=== PATIENT | male | born 1945 | race Caucasian/White ===

== ENCOUNTER 2019-12-16 15:09 | Outpatient (CLI) | payer MEDICARE, BC, SELFPAY ==
--- NOTE | ~2019-12-16 | US_ITS ---
EXAMINATION: US renal BI EXAM DATE: 12/16/2019 16:05 INDICATION: Kidney cyst follow-up. TECHNIQUE: Multiple grayscale and Doppler images of the kidneys were obtained (by a technologist who performed the scan) and subsequently reviewed. There is no prior study for comparison. FINDINGS: Right kidney: There is normal contour and echogenicity. It measures 10.1 x 6.2 x 5.3 centimeters. T here are no focal renal lesions identified. There is no hydronephrosis. Left kidney: There is normal contour and echogenicity. It measures 9.9 x 4.9 x 6.0 centimeters. Exop hytic 5 mm cyst. There is no hydronephrosis. Bladder unremarkable. IMPRESSION: 1. Sonographically unremarkable kidneys. Reviewed, dictated and finalized at location A.
== END 2019-12-16 15:10 | disposition home or self-care (01) ==
LOC: ANHIMG 15:19
PROVIDERS: PCP Family Medicine; Visit Provider Nurse Practitioner Family
DX: N28.1 Cyst of kidney, acquired (principal)
CPT/HCPCS: 76775

== ENCOUNTER 2020-09-23 09:03 | Outpatient (CLI) | payer MEDICARE, BC, SELFPAY ==
[2020-09-23 09:19] LABS: Basophils Absolute Auto 0.1 K/mm3 (0.0-0.1); Basophils Percent Auto 0.7 % (0.2-1.2); Eosinophils Absolute Auto 0.1 K/mm3 (0-0.3); Eosinophils Percent Auto 1.4 % (0-4.4); Hematocrit 42.7 % (42.0-52.0); Hemoglobin 14.6 g/dL (14.0-18.0); Immature Granulocyte Absolute 0.02 K/mm3 (0.00-0.031); Immature Granulocyte Percent A 0.3 % (0-0.5); Lymphocytes Absolute Auto 1.96 K/mm3 (0.9-3.2); Lymphocytes Percent Auto 27.5 % (18.3-44.2); Mean Corpuscular HGB Conc 34.2 g/dl (32-36); Mean Corpuscular Hemoglobin 31.9 pg (26-34); Mean Corpuscular Volume 93.2 fl (80-100); Mean Platelet Volume 10.4 fl (7.4-10.4); Monocytes Absolute Auto 0.6 K/mm3 (0.1-0.6); Monocytes Percent Auto 8.3 % (2.6-8.5); Neutrophils Absolute Auto 4.4 K/mm3 (1.3-6.7); Neutrophils Percent Auto 61.8 % (45.5-73.1); Platelet Count Result 145 k/mm3 (150-375); Red Blood Count 4.58 M/mm3 (4.6-6.20); Red Cell Distribution Width 13.1 % (11.5-14.5); White Blood Count 7.1 K/mm3 (4.5-10.0)
[2020-09-23 09:29] LABS: Alanine Aminotransferase 28 U/L (4-50); Alkaline Phosphatase 108 U/L (38-126); Anion Gap 7 mmol/L (8-16); Aspartate Amino Transferase 27 U/L (17-59); Bilirubin,Total 0.9 mg/dL (0.2-1.3); Blood Urea Nitrogen 16 mg/dL (9-20); Calcium 9.5 mg/dL (8.4-10.2); Carbon Dioxide 32 mmol/L (22-30); Chloride 103 mmol/L (98-107); Cholesterol 149 mg/dL (0-200); Estimated Glomerular Filt Rate > 60; Glucose 131 mg/dL (75-110); HDL Direct 51 mg/dL; Potassium 4.2 mmol/L (3.4-5.0); Sodium 142 mmol/L (137-145); Triglycerides 87 mg/dL (<150)
[2020-09-23 09:40] LABS: LDL Cholesterol Direct 77 mg/dL
[2020-09-23 09:59] LABS: Prostate Specific Antigen 3.4 ng/mL (< OR = 4.0)
[2020-09-23 10:09] LABS: Iron 140 ug/dL (49-181)
[2020-09-23 10:18] LABS: Percent Iron Saturation 40 % (20-50)
[2020-09-26 10:27] LABS: Testosterone Total 262 ng/dL (250-1100)
== END 2020-09-23 09:04 | disposition home or self-care (01) ==
LOC: ANHLAB 09:05
PROVIDERS: PCP Family Medicine; Visit Provider Family Medicine
DX: Z12.5 Encounter for screening for malignant neoplasm of prostate (principal); D64.9 Anemia, unspecified; F32.5 Major depressive disorder, single episode, in full remission; I50.42 Chronic combined systolic (congestive) and diastolic (congestive) heart failure; N52.9 Male erectile dysfunction, unspecified
CPT/HCPCS: 36415; 80048; 80061; 80076; 83540; 83550; 84153; 84403; 84443; 85025; G0103

== ENCOUNTER 2021-02-23 09:35 | Outpatient (CLI) | payer MEDICARE, BC, SELFPAY ==
--- NOTE | ~2021-02-23 | XR_ITS ---
EXAMINATION: XR cervical spine min 6V EXAM DATE: 02/23/2021 10:01 INDICATION: No known recent injury provided at this time. Pain of the right arm, symptoms 3 days. Arvizu ited range of motion. TECHNIQUE: Cervical spine frontal, lateral, lateral swimmers, and open-mouth odontoid projections. Additional lateral flexion and lateral extension projections obtained. FINDINGS: There is no evidence of acute cervical fracture. The odontoid process is intact. Pre-dens space is normal. Prevertebral soft tissue is normal. There are no soft tissue abnormalities identi fied. There is moderate disc disease C4-C7, mild at C3-4. There is mild cervical levoscoliosis. Exp ected amount of motion between the flexion and extension projections. There is overall moderate cervi debbie arthropathy. This is causing some amount of mid cervical neural foraminal stenosis. IMPRESSION: 1. Moderate cervical spondylosis. 2. Mild levoscoliosis. Reviewed, dictated and finalized at location A.
--- NOTE | ~2021-02-23 | XR_ITS ---
EXAMINATION: XR shoulder RT min 2V DATE: 02/23/2021 10:01 INDICATION: Paresthesias of skin. TECHNIQUE: 4 views of right shoulder were obtained. COMPARISON: None. FINDINGS: Bone alignment is normal. No fracture. There is mild osteoarthritis of glenohumeral joint a nd severe osteoarthritis of acromioclavicular joint. There is calcific tendinitis of the rotator cuff . Electrodes overlie thoracic spine. There are old healed right rib fractures. IMPRESSION: 1. Polyarticular osteoarthritis. 2. Calcific tendinitis of right rotator cuff. Reviewed, dictated and finalized at location A.
== END 2021-02-23 09:36 | disposition home or self-care (01) ==
LOC: ANHIMG 09:40
PROVIDERS: PCP Family Medicine; Visit Provider Nurse Practitioner Family
DX: R20.2 Paresthesia of skin (principal); M47.812 Spondylosis without myelopathy or radiculopathy, cervical region; M19.011 Primary osteoarthritis, right shoulder
CPT/HCPCS: 72052; 73030

== ENCOUNTER 2021-03-17 08:57 | Outpatient (CLI) | payer MEDICARE, BC, SELFPAY ==
--- NOTE | ~2021-03-17 | MR_ITS ---
EXAMINATION: MR cervical spine wo con DATE: 03/17/2021 10:08 INDICATION: Right-sided neck pain. Disorder of bone, unspecified. TECHNIQUE: Magnetic resonance imaging (MRI) of the cervical spine was performed without intravenous c ontrast. Sequences included sagittal T2-weighted FSE, sagittal STIR FSE, sagittal T1-weighted FSE, ax ial MERGE, and axial T2-weighted FSE. COMPARISON: Cervical spine radiographs 02/23/2021 FINDINGS: There is 3 degrees levocurvature of lumbar spine. Vertebral body heights are normal. There is mildly decreased disc height at C3-C4, severely decreased disc height at C4-C5, moderately decreas ed disc height at C5-C6 and C6-C7, and mildly decreased disc height at C7-T1. The spinal cord signal intensity is normal. The following disc levels are specifically discussed: C2-C3: The disc does not extend beyond the endplate margin. There is no uncovertebral joint osteoarth ritis. There is mild bilateral facet joint osteoarthritis. There is mild left neural foraminal stenos is. There is no central canal stenosis. C3-C4: The disc is bulging. There is mild right and severe left uncovertebral joint osteoarthritis. T here is mild bilateral facet joint osteoarthritis. There is mild right and moderate left neural jose inal stenosis. There is severe central canal stenosis with ventral and dorsal indentation of the spin al cord. C4-C5: There is a central extrusion. There is severe bilateral uncovertebral joint osteoarthritis. Th ere is mild right and severe left facet joint osteoarthritis. There is severe bilateral neural forami nal stenosis. There is severe central canal stenosis with ventral and dorsal indentation of the spina l cord. C5-C6: The disc is bulging. There is severe bilateral uncovertebral joint osteoarthritis. There is no facet joint osteoarthritis. There is severe bilateral neural foraminal stenosis. There is moderate c entral canal stenosis with ventral and dorsal indentation of the spinal cord. C6-C7: The disc is bulging. There is severe bilateral uncovertebral joint osteoarthritis. There is mi ld bilateral facet joint osteoarthritis. There is moderate right and mild left neural foraminal steno sis. There is mild central canal stenosis. C7-T1: The disc is bulging. There is severe right and moderate left uncovertebral joint osteoarthriti s. There is moderate right and mild left facet joint osteoarthritis. There is moderate right and mild left neural foraminal stenosis. There is mild central canal stenosis. IMPRESSION: 1. Severe cervical spondylosis. Reviewed, dictated and finalized at location A.
--- NOTE | ~2021-03-17 | MR_ITS ---
EXAMINATION: MR shoulder RT wo con DATE: 03/17/2021 10:09 INDICATION: Right shoulder pain and limited range of motion. TECHNIQUE: Magnetic resonance imaging (MRI) of the right shoulder was performed without intravenous c ontrast. Sequences included axial PD-weighted FS FSE, coronal oblique PD-weighted FS FSE, coronal obl ique T2-weighted FS FSE, sagittal PD-weighted FS FSE, and sagittal T1-weighted SE. COMPARISON: Right shoulder radiographs dated 02/23/2021 FINDINGS: Coracoacromial arch: The acromion undersurface is curved in morphology (type II). The coracoacromial ligament is normal. M oderate acromioclavicular osteoarthritis. Rotator cuff: Mild supraspinatus tendinopathy with attenuation of the distal 1 cm of the supraspinatus tendon and w ith increased signal along the articular side of the supraspinatus footplate consistent with small pa rtial-thickness articular sided tear, the margins of which are difficult to distinguish. Mild infrasp inatus and subscapularis tendinopathy without discrete tears. 12 x 13 x 4 mm globular region of low s ignal corresponding to the amorphous calcific density on the prior radiographs consistent with calcif ic tendinitis which is situated between the distal aspect of the infraspinatus and otherwise normal t eres minor tendons. Normal rotator cuff muscle bulk and signal. Biceps tendon, glenoid labrum and glenohumeral cartilage: The long head of the biceps tendon is not visualized and likely torn and retracted below the level of the intertubercular groove. Degenerative tear at the 10:00 of the 11:00 position of the posterior hernandez perior glenoid labrum. Mild partial-thickness cartilage loss with smooth chondral surface along the c ephalad third of the glenoid. Additional deeper partial-thickness cartilage loss along the inferomedi al aspect of the humeral head with prominent underlying subarticular edema. Fluid: Physiologic amount of fluid in the glenohumeral joint and biceps tendon sheath. No loose osteochondra l bodies. Very small amount of fluid in the subacromial/subdeltoid bursa consistent with minimal burs itis. Bones: Bone alignment is normal. No fracture or pathologic marrow replacing process. IMPRESSION: 1. Mild supraspinatus, infraspinatus and subscapularis tendinopathy with small poorly delineated part ial-thickness articular sided tear of the distal supraspinatus tendon. 2. 12 x 13 x 4 mm globular region of calcific tendinitis at the junction of the distal teres minor an d infraspinatus tendons. 3. Mild glenohumeral osteoarthritis with degenerative tearing at the posterior superior glenoid labru m. 4. Complete tear and distal retraction of the long head biceps tendon. 5. Moderate acromioclavicular osteoarthritis. Reviewed, dictated and finalized at location A. IMPRESSION: 1. Mild supraspinatus, infraspinatus and subscapularis tendinopathy with small poorly delineated partial-thickness articular sided tear of the distal supraspi natus tendon. 2. 12 x 13 x 4 mm globular region of calcific tendinitis at the junction of the distal teres minor and infraspinatus tendons. 3. Mild glenohumeral osteoarthritis with degenerative tearing at the posterior superior glenoid labrum. 4. Complete tear and distal retraction of the long head biceps tendon. 5. Moderate acromioclavicular osteoarthritis.
== END 2021-03-17 08:58 ==
LOC: MICIMG 08:57
PROVIDERS: Visit Provider Nurse Practitioner Family
DX: M19.011 Primary osteoarthritis, right shoulder (principal); S46.111A Strain of muscle, fascia and tendon of long head of biceps, right arm, initial encounter; X58.XXXA Exposure to other specified factors, initial encounter; M47.892 Other spondylosis, cervical region
CPT/HCPCS: 72141; 73221

== ENCOUNTER 2021-09-11 09:22 | Emergency (ER) | payer MEDICARE, BC, SELFPAY ==
--- NOTE | ~2021-09-11 | CT_ITS ---
EXAMINATION: CTA chest PE protocol DATE: 09/11/2021 13:56 INDICATION: Chest pain. Elevated d-dimer. TECHNIQUE: Computed tomography (CT) pulmonary angiogram of the chest was performed with 100 mL Omnipa que-350 intravenous contrast. Additional 3D reconstructions utilizing coronal maximum intensity proje ction (MIP) were performed. Automated exposure control and iterative reconstruction technique were em ployed. The dose-length product was 509.58 mGy-cm. COMPARISON: None FINDINGS: Good contrast opacification of the pulmonary arteries. There is mild streak artifact from dense contr ast in the superior vena cava and right atrium. Mild scattered respiratory motion artifact which does not significantly limit evaluation. Small pulmonary embolism within the superior segmental pulmonary artery of the right lower lobe. Mild emphysema. 5 mm pleural-based nodule at the periphery of the hernandez perior segment of the right lower lobe. Additional small calcified nodule in the right lower lobe con sistent with old granulomatous disease. No pneumonia, pulmonary edema, pleural effusion or pneumothor ax. Mild cardiomegaly. Atherosclerotic coronary artery calcification. No pericardial effusion. No pat hologically enlarged thoracic lymphadenopathy. Visualized upper abdomen is unremarkable. Moderate tho racic spondylosis with bridging osteophytes at multiple levels consistent with diffuse idiopathic ske letal hyperostosis (DISH). Spinal stimulator leads in the central canal the level of T9 and T10. IMPRESSION: 1. Single pulmonary embolism with small clot burden is in the right lower lobar superior segmental pu lmonary artery. 2. Cardiomegaly without evident right heart strain. 3. Mild emphysema. Reviewed, dictated and finalized at location A. 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 Single pulmonary embolism with small clot burden is in the right lower lobar superior segmental pulmonary artery. 2. Cardiomegaly without evident right heart strain. 3. Mild emphysema.
--- NOTE | ~2021-09-11 | XR_ITS ---
EXAMINATION: XR chest 2V DATE: 09/11/2021 12:45 INDICATION: Cough and chest pain TECHNIQUE: PA and lateral views of the chest were obtained. COMPARISON: Chest radiograph dated 08/02/2019 and 05/24/2017 FINDINGS: The lungs remain clear with no focal airspace opacities, pulmonary edema, pleural effusion or pneumot horax. The cardiomediastinal silhouette is normal. Several old healed bilateral rib fractures. Thorac olumbar kyphosis. Spinal stimulator leads project over the central canal of the lower thoracic spine with distal tip at the level of the inferior endplate of T8. There is fusion across the anterior disc space at L1-L3. Partially visualized lumbar posterior spinal fusion with bilateral vertical rods and pedicle screws at L2 and L3. IMPRESSION: 1. No acute cardiopulmonary disease. Reviewed, dictated and finalized at location A. 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
--- NOTE | 2021-09-11 09:33 | ECG_ITS ---
Measurements Intervals [place] Rate: 70 P: -12 NC: 164 QRS: -69 QRSD: 144 T: -30 QT: 407 QTc: 440 Interpretive Statements SINUS RHYTHM POSSIBLE LEFT ATRIAL ENLARGEMENT RIGHT BUNDLE BRANCH BLOCK LEFT ANTERIOR FASCICULAR BLOCK BASELINE ARTIFACT- V5 ABNORMAL ECG Electronically Signed On 09-11-2021 12:30:17 CHIEF PSYCHOLOGY by Hayden Acosta D.O.
[2021-09-11 09:53] VITALS: BP 154/70; PULSE 75; RESP 14; TEMP 36.9; O2SAT 100
--- NOTE | 2021-09-11 12:03 | PC.NURSE ---
pt. stepped out to let dog use the restroom and to walk dog. states he will be right back.
[2021-09-11 12:17] VITALS: BP 172/86; PULSE 89; RESP 28; O2SAT 100
--- NOTE | 2021-09-11 12:35 | ED.GENADULT ---
HPI - General Adult General Chief complaint: Upper Respiratory Infection Stated complaint: Bronchitis flair up Time Seen by Provider: 09/11/21 12:21 Source: patient, RN notes reviewed and old records reviewed Mode of arrival: ambulatory Limitations: no limitations History of Present Illness HPI narrative: This is a 75 year old male who presents for evaluation of possible bronchitis. He is complaining of chest congestion and midsternal chest pressure for 2-3 days. He states he is unable to cough anything up. His chest pressure is constant and nonradiating. He denies any exacerbating factors regarding his chest pressure. He denies runny nose, sinus congestion, fever, chills or shortness of breath. He denies sick contacts, and he is not vaccinated for covid. He is sure that this is bronchitis so he came to get antibiotics. On review of his records, he has history of CHF. Related Data Allergies Allergy/AdvReac Type Severity Reaction Status Date / Time Influenza Virus Vaccines Allergy Mild Hives / Verified 08/30/21 17:41 Red Face Review of Systems Review of Systems: All systems reviewed & are unremarkable except as noted in HPI and below PMFSH Past Medical History Medical History Abnormal MRI, musculoskeletal Anemia, unspecified Blood in stool BMI 29.0-29.9,adult Chronic combined systolic and diastolic congestive heart failure HTN (hypertension) Major depressive disorder with single episode, in full remission Other intervertebral disc degeneration, lumbar region Parkinson disease Screening for prostate cancer Surgical History Surgical History History of hip surgery History of lumbar surgery Family History Family History Father No problems noted. Mother No problems noted. Sibling No problems noted. 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[employer] Gender identity (if verbalized by the patient): Male Exam Const: General: no acute distress and alert Orientation/consciousness: patient oriented x3 HENMT: Head: normocephalic and atraumatic Face and sinus: normal facial exam, sinuses nontender and face symmetric Throat: posterior oropharynx normal, tonsils normal and uvula midline Eyes: Pupils: Equal, round and reactive pupils present EOM: EOMs intact bilaterally Resp: Effort & Inspection: normal respiratory effort, not labored, no retractions and not tachypneic Auscultation: clear to auscultation bilaterally Cardio: Rate: regular rate Rhythm: regular rhythm Heart sounds: no murmurs GI: GI Palp: Yes Soft to palpation, No Tenderness to palpation present (GI) and No Guarding due to palpation present (GI) Auscultation: normal bowel sounds Skin: General skin exam: normal color Rashes: no rashes Neuro: General: patient oriented x3, moves all extremities and CN's II-XI intact bilaterally Psych: Mental Status: mental status grossly normal Affect: normal affect Course Reevaluation(s) Reevaluation #1: I have had to talk patient out of leaving AMA a couple of times. He was found to have small PE and his vitals are stable. He understands seriousness of diagnosis and that he needs to take his medication. Patient was seen by care Coordination who gave patient resources for shelters. HE was also given coupon for 30 days of eliquis for free. Date: 09/11/21 Time: 15:07 Consultations Consultation #1: I
[2021-09-11] MEDS: ALBUTEROL SULFATE (*SP) AEROSOL 1 PUFF 2 PUFF INHALATION (12:54)
[2021-09-11 13:11] LABS: Basophils Percent Auto 0.5 % (0.2-1.2); Hematocrit 40.9 % (42.0-52.0); Immature Granulocyte Absolute 0.03 K/mm3 (0.00-0.031); Immature Granulocyte Percent A 0.4 % (0-0.5); Lymphocytes Absolute Auto 0.72 K/mm3 (0.9-3.2); Lymphocytes Percent Auto 9.8 % (18.3-44.2); Mean Corpuscular HGB Conc 34.2 g/dl (32-36); Mean Corpuscular Hemoglobin 32.9 pg (26-34); Mean Platelet Volume 10.2 fl (7.4-10.4); Monocytes Absolute Auto 0.8 K/mm3 (0.1-0.6); Neutrophils Absolute Auto 5.8 K/mm3 (1.3-6.7); Neutrophils Percent Auto 78.3 % (45.5-73.1); Platelet Count Result 153 k/mm3 (150-375); Red Blood Count 4.26 M/mm3 (4.6-6.20); Red Cell Distribution Width 13.2 % (11.5-14.5); White Blood Count 7.4 K/mm3 (4.5-10.0)
[2021-09-11 13:22] LABS: Alanine Aminotransferase 26 U/L (4-50); Albumin Level 4.6 g/dL (3.5-5.1); Alkaline Phosphatase 93 U/L (38-126); Anion Gap 10 mmol/L (8-16); Aspartate Amino Transferase 25 U/L (17-59); Bilirubin,Total 0.6 mg/dL (0.2-1.3); Blood Urea Nitrogen 13 mg/dL (9-20); Calcium 9.5 mg/dL (8.4-10.2); Carbon Dioxide 24 mmol/L (22-30); Chloride 100 mmol/L (98-107); Estimated CRCL calculation 59 ml/min; Estimated Glomerular Filt Rate > 60; Glucose 108 mg/dL (65-110); Potassium 4.4 mmol/L (3.4-5.0); Prothrombin Time 13.2 Seconds (11.1-14.7); Sodium 134 mmol/L (137-145)
[2021-09-11 13:23] LABS: Partial Thromboplastin Time 28.1 SECONDS (22.3-36.8)
[2021-09-11 13:34] LABS: NT Pro B Type Natriuretic Pept 1360 pg/mL (5-100); Troponin I 0.031 ng/mL (0.000-0.034)
--- NOTE | 2021-09-11 15:16 | PCCCNOTE ---
Care Coordination was requested to visit pt for living resources and medication assistance. Pt currently is living out of his car with his dog. He states he is not interested in help with homeless shelters and declined the list if needed later. Gave pt free 30 day trial Card for Eliquis. Informed pt he will need Rx to go with the free card. Informed Dr. Grullon of providing card to pt and that he declines help with homeless shelters at this time.
[2021-09-11 15:23] VITALS: BP 164/82; PULSE 80; RESP 16; O2SAT 100
[2021-09-11] MEDS: APIXABAN 5 MG TABLET 10 MG PO (15:23)
== END 2021-09-11 15:24 | disposition home or self-care (01) ==
PROVIDERS: Emergency Provider General Practice; PCP Family Medicine
DX: J43.9 Emphysema, unspecified (principal); I26.93 Single subsegmental thrombotic pulmonary embolism without acute cor pulmonale; D64.9 Anemia, unspecified; I11.0 Hypertensive heart disease with heart failure; I50.42 Chronic combined systolic (congestive) and diastolic (congestive) heart failure; G20 Parkinson's disease; F17.210 Nicotine dependence, cigarettes, uncomplicated; I51.7 Cardiomegaly; R94.31 Abnormal electrocardiogram [ECG] [EKG]; I45.2 Bifascicular block
CPT/HCPCS: 36415; 71046; 71275; 80053; 83880; 84484; 85025; 85380; 85610; 85730; 93005; 99284; A9270; Q9967